=== PATIENT | female | born 1960 | race Caucasian/White ===

== ENCOUNTER 2025-03-03 05:49 | Inpatient (IN) | payer OTHER ==
[2025-02-27 09:35] LABS: BASO % 0.3 % (0.1-1.2); EOS # 0.08 (0.04-0.54); EOS % 0.9 % (0.7-7.0); LYMPH # 2.33 (1.18-3.74); LYMPH % 26.9 % (19.3-53.1); MONO # 0.51 (0.24-0.82); MONO % 5.9 % (4.7-12.5); NEUT # 5.69 (1.56-6.13); NEUT % 65.9 % (34.0-71.1); RED CELL DISTRIBUTION WIDTH 18.6 % (11.6-14.4)
[2025-02-27 09:44] VITALS: BP 147/89
[2025-02-27 09:56] LABS: INR 1.04
[2025-02-27 10:43] LABS: ALT/SGPT 24.0 U/L (12-78); AST/SGOT 17.0 U/L (15-37); BILIRUBIN TOTAL 0.97 mg/dL (0.3-1.2); BUN CREA RATIO 16.0 (7.0-25.0); CREATININE SERUM 0.56 mg/dL (0.55-1.02); GFR 109.34; GLOBULINA 3.5 G/DL (2.4-3.5); GLUCOSE FASTING 85.0 mg/dL (65-100); OSMOLALITY SERUM 277.0 MOSM/KG (275-295)
[~2025-03-03] VITALS: Ht 165.1 cm; Wt 748.4 kg
[~2025-03-03 05:49] MED LIST: NORVASC5 MG PO; TOPROL XL25 M1 PO; TYLENOL W-CODEI1 TAB PO
[2025-03-03] MEDS ORDERED: 0.9 % SODIUM CHLORIDE 1,000 ML IV SCH (12:15)
[2025-03-03] MEDS ORDERED: ACETAMINOPHEN 500 MG GEL..CAP PO PRN (16:00)
[2025-03-03] MEDS ORDERED: ENALAPRILAT DIHYDRATE 1.25 MG/ML VIAL IV PRN (16:00)
[2025-03-03] MEDS ORDERED: PIPERACILLIN/TAZOBACTAM SODIUM 3.375 GM in 0.9 % SODIUM CHLORIDE 100 ML IV SCH (18:00)
[2025-03-03 20:00] VITALS: BP 130/78; O2SAT 99
[2025-03-03] MEDS ORDERED: FAMOTIDINE/PF 20 MG in 0.9 % SODIUM CHLORIDE 8 ML IV PUSH SCH (21:00)
[2025-03-04 01:12] VITALS: BP 112/72; O2SAT 95
[2025-03-04 07:26] LABS: BASO % 0.5 % (0.1-1.2); EOS # 0.06 (0.04-0.54); EOS % 0.6 % (0.7-7.0); LYMPH # 2.59 (1.18-3.74); LYMPH % 23.8 % (19.3-53.1); MONO # 0.65 (0.24-0.82); MONO % 6.0 % (4.7-12.5); NEUT # 7.50 (1.56-6.13); NEUT % 68.9 % (34.0-71.1); RED CELL DISTRIBUTION WIDTH 18.2 % (11.6-14.4)
[2025-03-04 08:08] LABS: INR 1.08
[2025-03-04 08:39] LABS: ALT/SGPT 21.0 U/L (12-78); AST/SGOT 22.0 U/L (15-37); BILIRUBIN TOTAL 1.87 mg/dL (0.3-1.2); BUN CREA RATIO 10.0 (7.0-25.0); CREATININE SERUM 0.68 mg/dL (0.55-1.02); GFR 87.39; GLOBULINA 3.4 G/DL (2.4-3.5); GLUCOSE FASTING 88.0 mg/dL (65-100); OSMOLALITY SERUM 284.0 MOSM/KG (275-295)
[2025-03-04 08:41] VITALS: BP 115/69; O2SAT 100
[2025-03-04] MEDS ORDERED: METOPROLOL SUCCINATE 25 MG TAB.SR.24H PO SCH (09:00)
[2025-03-04] MEDS ORDERED: AMLODIPINE BESYLATE 5 MG TABLET PO SCH (09:00)
[2025-03-04 16:00] VITALS: BP 132/85; O2SAT 96
== END 2025-03-04 17:08 | disposition home or self-care (01) | DRG 422 ==
LOC: CIR.AMB 05:49 → O/R 14:39 → SURH 14:39
PROVIDERS: ADMIT Internal Medicine; ATTEND Internal Medicine
PROC: 0FD04ZX Extraction of Liver, Percutaneous Endoscopic Approach, Diagnostic (ICD-10-PCS; principal; 2025-03-03 08:00)
DX: D13.4 Benign neoplasm of liver (principal); R93.3 Abnormal findings on diagnostic imaging of other parts of digestive tract; K76.89 Other specified diseases of liver